=== PATIENT | male | born 1970 | race Caucasian/White ===

== ENCOUNTER 2017-12-27 13:32 | Inpatient (IN) | payer OTHER ==
[2017-12-27 14:50] VITALS: BMI 43.0
[2017-12-27] MEDS ORDERED: MAGNESIUM CITRATE 300 ML BOTTLE PO PRN (15:23)
[2017-12-27] MEDS ORDERED: P-EPHED 60MG/TRIPROLIDI 2.5MG TABLET PO PRN (15:23)
[2017-12-27] MEDS ORDERED: MENTHOL/PHENOL 1 EACH UD MM PRN (15:23)
[2017-12-27] MEDS ORDERED: chlordiazePOXIDE HCL 25 MG CAPSULE PO PRN (15:23)
[2017-12-27] MEDS ORDERED: guaiFENesin/D-METHORPHAN HB 10 ML UNIT-DOSE CUPS PO PRN (15:23)
[2017-12-27] MEDS ORDERED: MAGNESIUM HYDROX 2400MG/30ML ORAL SUSPENSION 30 ML CUP PO PRN (15:23)
[2017-12-27] MEDS ORDERED: NICOTINE POLACRILEX 2 MG GUM BC PRN (15:23)
[2017-12-27] MEDS ORDERED: ACETAMINOPHEN 325 MG TABLET (FP) PO PRN (15:23)
[2017-12-27] MEDS ORDERED: MAG HYDROX/AL HYDROX/SIMETH 30 ML UNIT-DOSE CUP PO PRN (15:23)
[2017-12-27] MEDS ORDERED: LOPERAMIDE HCL 2 MG CAPSULE PO PRN (15:23)
[2017-12-27] MEDS ORDERED: hydrOXYzine PAMOATE 50 MG CAPSULE (FP) PO PRN (15:23)
[2017-12-27] MEDS ORDERED: IBUPROFEN 400 MG TABLET (FP) PO PRN (15:23)
[2017-12-27] MEDS ORDERED: ONDANSETRON *ODT* 4 MG TABLET SL PRN (15:32)
--- NOTE | 2017-12-27 15:46 | HP ---
CIWA Score - CIWA Score Nausea/Vomitin-Int. Nausea w/Dry Heave Muscle Tremors: 4-Moderate,w/Arms Extend Anxiety: 4-Mod. Anxious/Guarded Agitation: 2 Paroxysmal Sweats: 2 Orientation: 0-Oriented Tacttile Disturbances: 1-Very Mild Itch/Numbness Auditory Disturbances: 0-None Visual Disturbances: 0-None Headache: 0-None Present CIWA-Ar Total Score: 17 Admission ROS S - HPI Chief Complaint: "I fell off the tracks, the past three weeks Radha been drinking excessively Allergies/Adverse Reactions: Allergies Allergy/AdvReac Type Severity Reaction Status Date / Time No Known Allergies Allergy Verified 12/27/17 15:16 History of Present Illness: 47 yo male with hx of nicotine and alcohol dependence is here seeking detox. Last detox at [facility] three years ago. No legal troubles at this time. Longest period of sobriety 90 days. PMHX: HTN, obesity, chronic right shoulder pain, depression, anxiety. Denies suicidal / homicidal ideation. Reports hx of seizure 5 years d/t alcohol withdrawal one year ago. Exam Limitations: No Limitations - Ebola screening Have you traveled outside of the country in the last 21 days: No Have you had contact with anyone from an Ebola affected area: No Have you been sick,other than usual withdrawal symptoms: No Do you have a fever: No - Review of Systems Constitutional: Diaphoresis, Loss of Appetite, Changes in sleep, Other (weight gain, anxious) EENT: reports: No Symptoms Reported Respiratory: reports: No Symptoms reported Cardiac: reports: No Symptoms Reported GI: reports: Poor Appetite, Poor Fluid Intake : reports: Other (nocturia) Musculoskeletal: reports: Other (chronic right shoulder pain from shoulder injury) Integumentary: reports: No Symptoms Reported Neuro: reports: Tremors Endocrine: reports: Increased Thirst Hematology: reports: No Symptoms Reported Psychiatric: reports: Orientated x3, Anxious, Depressed Other Systems: Reviewed and Negative Patient History - Patient Medical History Hx Anemia: No Hx Asthma: No Hx Chronic Obstructive Pulmonary Disease (COPD): No Hx Cancer: No Hx Cardiac Disorders: No Hx Hypertension: Yes Hx Hypercholesterolemia: No Hx Pacemaker: No HX Cerebrovascular Accident: No Hx Seizures: Yes (alcohol related once in 2012) Hx Dementia: No Hx Diabetes: No Hx Gastrointestinal Disorders: No Hx Genitourinary Disorders: No Hx Sexually Transmitted Disorders: No Hx Renal Disease (ESRD): No Hx Thyroid Disease: No Hx Human Immunodeficiency Virus (HIV): No Hx Hepatitis C: No Hx Depression: Yes Hx Suicide Attempt: No Hx Bipolar Disorder: No Hx Schizophrenia: No - Patient Surgical History Past Surgical History: Yes Hx Neurologic Surgery: No Hx Cataract Extraction: No Hx Cardiac Surgery: No Hx Lung Surgery: No Hx Breast Surgery: No Hx Breast Biopsy: No Hx Abdominal Surgery: No Hx Appendectomy: No Hx Cholecystectomy: No Hx Genitourinary Surgery: No Hx Section: No Hx Orthopedic Surgery: Yes (right shoulder dislocation in 2005) Anesthesia Reaction: No - PPD History Previous Implant?: Yes Documented Results: Negative w/o proof Implanted On Prior R Admission?: No PPD to be Administered?: Yes - Smoking Cessation Smoking history: Current every day smoker Have you smoked in the past 12 months: Yes Aproximately how many cigarettes per day: 2 Hx Chewing Tobacco Use: No Initiated information on smoking cessation: Yes 'Breaking Loose' booklet given: 01/17/18 - Substance & Tx. History Hx Alcohol Use: Yes Hx Substance Use: Yes Substance Use Type: Alcohol Hx Substance Use Treatment: Yes ([facility] ago) - Substances Abused Alcohol-beer Route: Oral Frequency: Daily Amount used: 3 (40 oz.) Age of first use: 22 Date of Last Use: 12/27/17 Family Disease History - Family Disease History Family History: Denies Admission Physical Exam BHS - Vital Signs Vital Signs: Vital Signs - 24 hr 12/27/17 14:48 Temperature 97.5 F L Pulse Rate 81 Respiratory 20 Rate Blood Pressure 161/95 - Physical General Appearance: Yes: Disheveled, Moderate Distress, Obese, Tremorous, Sweating, Anxious HEENTM: Yes: EOMI, Hearing grossly Normal, Normal ENT Inspection, Normocephalic , Normal Voice, ROSA, Pharynx Normal, Tm's normal Respiratory: Yes: Chest Non-Tender, Lungs Clear, Normal Breath Sounds, No Respiratory Distress, No Accessory Muscle Use Neck: Yes: Within Normal Limits Breast: Yes: Breast Exam Deferred Cardiology: Yes: Regular Rhythm, Regular Rate, Murmur Abdominal: Yes: Normal Bowel Sounds, Non Tender, Soft, Protuberent Genitourinary: Yes: Within Normal Limits Back: Yes: Normal Inspection Musculoskeletal: Yes: full range of Motion, Gait Steady, Pelvis Stable Extremities: Yes: Normal Capillary Refill, Normal Inspection, Normal Range of Motion, Tremors Neurological: Yes: 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 NML intact, Fully Oriented, Alert, Motor Strength 5/5, Depressed Affect Integumentary: Yes: Normal Color, Warm, Diaphoresis Lymphatic: Yes: Within Normal Limits - Diagnostic (1) Alcohol dependence with withdrawal Current Visit: Yes Status: Acute Qualifiers: Complication of substance-induced condition: uncomplicated Qualified Code(s ): F10.230 - Alcohol dependence with withdrawal, uncomplicated (2) Nicotine dependence Current Visit: Yes Status: Acute Qualifiers: Nicotine product type: cigarettes (3) Obese Current Visit: Yes Status: Chronic Qualifiers: Obesity classification: adult class 3 (BMI >= 40) Serious obesity comorbidity presence: unspecified whether serious comorbidity present Body mass index: BMI 40.0-44.9 (4) Chronic right shoulder pain Current Visit: Yes Status: Chronic (5) Hypertension Current Visit: Yes Status: Chronic Qualifiers: Hypertension type: essential hypertension Qualified Code(s): I10 - Essential (primary) hypertension Cleared for Admission [facility] - Detox or Rehab [facility] Level of Care: Medically Managed Detox Regimen/Protocol: Librium [facility] Breath Alcohol Content Breath Alcohol Content: 0.296 Urine Drug Screen - Results Drug Screen Negative: Yes
[2017-12-27] MEDS ORDERED: cloNIDine HCL 0.1 MG TABLET PO ONE (17:00)
[2017-12-27] MEDS ORDERED: chlordiazePOXIDE HCL 25 MG CAPSULE PO ONE (17:00)
[2017-12-27] MEDS: LIDOCAINE 5% TOPICAL PATCH TP SCH (17:07)
[2017-12-27] MEDS: CYCLOBENZAPRINE HCL 5 MG TABLET PO SCH (22:21)
[2017-12-27] MEDS: chlordiazePOXIDE HCL 25 MG CAPSULE PO SCH (22:21)
[2017-12-27] MEDS: THIAMINE HCL 100 MG TABLET (FP) PO SCH (22:21)
[2017-12-27] MEDS: MELATONIN 5 MG TABLETS PO PRN (22:22)
[2017-12-27] MEDS: LIDOCAINE PATCH REMOVAL MC SCH (22:31)
[2017-12-28] MEDS: chlordiazePOXIDE HCL 25 MG CAPSULE PO SCH ×4 (05:19→22:25)
[2017-12-28] MEDS: CYCLOBENZAPRINE HCL 5 MG TABLET PO SCH ×3 (05:19→22:25)
[2017-12-28] MEDS ORDERED: PATIENT'S OWN MEDICATION (NON-FORMULARY) (Amlodipine Besylate/Benazepril [Lotrel 5-10 Mg C PO SCH (10:00)
[2017-12-28] MEDS: LISINOPRIL 10 MG TABLET (FP) PO SCH (10:06)
[2017-12-28] MEDS: PRENATAL VITAMINS W/ FOLIC ACID TABLET (FP) PO SCH (10:06)
[2017-12-28] MEDS: LIDOCAINE 5% TOPICAL PATCH TP SCH (10:06)
[2017-12-28] MEDS: amLODIPine BESYLATE 5 MG TABLET (FP) PO SCH (10:06)
[2017-12-28] MEDS: NICOTINE 14 MG/24 HOURS TOPICAL PATCH TD SCH (10:08)
[2017-12-28 10:54] LABS: HEMATOCRIT 44.1 % (35.4-49); HEMOGLOBIN 14.5 GM/dL (11.7-16.9); MEAN CELL VOLUME 90.8 fl (80-96); PLATELET COUNT 142 K/MM3 (134-434); RBC 4.85 M/mm3 (4.00-5.60); RDW 15.7 % (11.9-15.9); WHITE BLOOD COUNT 7.8 K/mm3 (4.0-10.0)
[2017-12-28 11:40] LABS: ALBUMIN 3.7 g/dl (3.4-5.0); ALK PHOS 99 U/L (45-117); ANION GAP 15 MMOL/L (8-16); BILIRUBIN,TOTAL 0.4 mg/dL (0.2-1); BLOOD UREA NITROGEN 12 mg/dL (7-18); CALCIUM 9.6 mg/dL (8.5-10.1); CHLORIDE 102 mmol/L (98-107); CO2 25 mmol/L (21-32); CREATININE 1.1 mg/dL (0.55-1.3); GLUCOSE,RANDOM 142 mg/dL (74-106); POTASSIUM 3.6 mmol/L (3.5-5.1); SGOT/AST 62 U/L (15-37); SGPT/ALT 49 U/L (13-61); SODIUM 142 mmol/L (136-145)
--- NOTE | 2017-12-28 11:52 | PN ---
[facility] CIWA - CIWA Score Nausea/Vomitin-Mild Nausea/No Vomiting Muscle Tremors: 4-Moderate,w/Arms Extend Anxiety: 4-Mod. Anxious/Guarded Agitation: 4-Moderately Restless Paroxysmal Sweats: 3 Orientation: 0-Oriented Tacttile Disturbances: 0-None Auditory Disturbances: 0-None Visual Disturbances: 0-None Headache: 1-Very Mild CIWA-Ar Total Score: 17 BHS Progress Note (SOAP) Subjective: Tremor, sweating, interrupted sleep Objective: 12/28/17 11:50 Last Vital Signs Temp Pulse Resp BP Pulse Ox 97.4 F L 94 H 18 151/98 12/28/17 09:55 12/28/17 10:30 12/28/17 10:30 12/28/17 09:55 b/p noted: h/o htn (on med) Laboratory Tests 12/28/17 12/28/17 06:00 06:00 WBC 7.8 RBC 4.85 Hgb 14.5 Hct 44.1 MCV 90.8 MCH 30.0 MCHC 33.0 RDW 15.7 Plt Count 142 MPV 11.0 Sodium 142 Potassium 3.6 Chloride 102 Carbon Dioxide 25 Anion Gap 15 BUN 12 Creatinine 1.1 Creat Clearance w eGFR > 60 Random Glucose 142 H Calcium 9.6 Total Bilirubin 0.4 AST 62 H ALT 49 Alkaline Phosphatase 99 Total Protein 8.0 Albumin 3.7 Labs reviewed Assessment: 12/28/17 11:51 Withdrawal sxs Plan: Continue detox HTN: continue regimen and adjust if warranted
--- NOTE | 2017-12-28 17:20 | PN ---
S Progress Note Note: Patient with elevated blood pressures despite daily Norvasc and Lisinopril. Denies H/A, numbness, CP. Ambulating w/ steady gait. Vital Signs 12/28/17 12/28/17 12/28/17 09:30 09:55 10:00 Temperature 97.4 F L Pulse Rate 92 H 92 H 94 H Respiratory 18 18 18 Rate Blood Pressure 151/98 12/28/17 12/28/17 12/28/17 12:00 12:30 13:21 Temperature 96.8 F L Pulse Rate 80 78 84 Respiratory 18 18 18 Rate Blood Pressure 154/88 Current B/P: 170/102 (L) 172/97 (R). Administer CloNidine 0.2 mg Once. Continue to monitor.
[2017-12-28] MEDS ORDERED: cloNIDine HCL 0.1 MG TABLET PO ONE (17:30)
[2017-12-28 17:37] LABS: URINE APPEARANCE SLCLOUDY; URINE BILIRUBIN NEGATIVE (<2.0 mg/dL); URINE COLOR YELLOW; URINE GLUCOSE (UA) NEGATIVE (NEGATIVE); URINE KETONE NEGATIVE (NEGATIVE); URINE LEUK ESTERASE NEGATIVE (NEGATIVE); URINE NITRITE NEGATIVE (NEGATIVE); URINE PROTEIN 1+ (NEGATIVE); URINE UROBILINOGEN NEGATIVE mg/dL (0.2-1.0)
--- NOTE | 2017-12-28 17:58 | CONSULT ---
[facility] Psychiatric Consult - Data Date of interview: 12/28/17 Admission source: [facility] Identifying data: First admission to [facility] for this 47 y/o male seeking detoxification treatment on for alcohol dependence.Patient is single without dependents,domiciled and currently employed. Substance Abuse History: Confirmed by the patient in this interview.Details in current [facility] report : Smoking history: Current every day smoker. Have you smoked in the past 12 months: Yes. Aproximately how many cigarettes per day: 2. Hx Chewing Tobacco Use: No. Initiated information on smoking cessation: Yes. 'Breaking Loose' booklet given: 01/17/18. - Substance & Tx. History. Hx Alcohol Use: Yes. Hx Substance Use: Yes. Substance Use Type: Alcohol. Hx Substance Use Treatment: Yes ([facility] detox three years ago). - Substances Abused. Alcohol-beer. Route: Oral. Frequency: Daily. Amount used: 3 (40 oz.). Age of first use: 22. Date of Last Use: 12/27/17 Medical History: Obesity,hypertension,antecedent of withdrawal-related seizures and a history of dislocation of right shoulder. Psychiatric History: Patient denies. Physical/Sexual Abuse/Trauma History: Patient denies. Additional Comment: Drug Screen is negative. Mental Status Exam - Mental Status Exam Alert and Oriented to: Time, Place, Person Cognitive Function: Good Patient Appearance: Well Groomed (obese) Mood: Hopeful, Euthymic Affect: Appropriate, Normal Range Patient Behavior: Fatigued, Cooperative Speech Pattern: Clear, Appropriate Voice Loudness: Normal Thought Process: Intact, Goal Oriented Thought Disorder: Not Present Hallucinations: Denies Suicidal Ideation: Denies Homicidal Ideation: Denies Insight/Judgement: Fair Sleep: Poorly, Difficulty falling asleep Appetite: Good Muscle strength/Tone: Normal Gait/Station: Normal Psychiatric Findings - Problem List ([place] 1, 2,3) (1) Alcohol dependence with withdrawal Current Visit: Yes Status: Acute Qualifiers: Complication of substance-induced condition: uncomplicated Qualified Code(s ): F10.230 - Alcohol dependence with withdrawal, uncomplicated (2) Nicotine dependence Current Visit: Yes Status: Chronic Qualifiers: Nicotine product type: cigarettes (3) Insomnia Current Visit: Yes Status: Acute - Initial Treatment Plan Initial Treatment Plan: Psychoeducation.Sleep hygiene.Detoxification.Insomnia is addressed with melatonin at bedtime.Patient agrees to this careplan.Observation.
[2017-12-28 18:01] LABS: EPI CELLS RARE /HPF (FEW); URINE HYALINE CAST 68 /lpf; URINE MUCUS RARE
[2017-12-28 18:05] LABS: CALCIUM OXALATE CRYSTALS 1+ /hpf (NONE SEEN); URIC ACID CRYSTALS 1+ /hpf (NONE SEEN)
[2017-12-28] MEDS: THIAMINE HCL 100 MG TABLET (FP) PO SCH (22:26)
[2017-12-28] MEDS: LIDOCAINE PATCH REMOVAL MC SCH (22:26)
[2017-12-28] MEDS: MELATONIN 5 MG TABLETS PO PRN (22:27)
[2017-12-29] MEDS: chlordiazePOXIDE HCL 25 MG CAPSULE PO SCH ×3 (06:08→18:00)
[2017-12-29] MEDS: CYCLOBENZAPRINE HCL 5 MG TABLET PO SCH ×3 (06:09→22:11)
[2017-12-29] MEDS: LISINOPRIL 10 MG TABLET (FP) PO SCH (10:01)
[2017-12-29] MEDS: amLODIPine BESYLATE 5 MG TABLET (FP) PO SCH (10:01)
[2017-12-29] MEDS: PRENATAL VITAMINS W/ FOLIC ACID TABLET (FP) PO SCH (10:01)
[2017-12-29] MEDS: LIDOCAINE 5% TOPICAL PATCH TP SCH (10:02)
[2017-12-29] MEDS: NICOTINE 14 MG/24 HOURS TOPICAL PATCH TD SCH (10:02)
[2017-12-29] MEDS: DOCUSATE SODIUM 100 MG CAPSULE (FP) PO SCH ×2 (13:58→22:11)
--- NOTE | 2017-12-29 15:02 | PN ---
S CIWA - CIWA Score Nausea/Vomitin Muscle Tremors: 2 Anxiety: 3 Agitation: 3 Paroxysmal Sweats: 2 Orientation: 0-Oriented Tacttile Disturbances: 0-None Auditory Disturbances: 0-None Visual Disturbances: 0-None Headache: 0-None Present CIWA-Ar Total Score: 12 BHS Progress Note (SOAP) Subjective: c/o constipation, last BM three days ago, interrupted sleep, anxious Objective: 12/29/17 15:00 Vital Signs Temperature 98.8 F 12/29/17 13:36 Pulse Rate 57 L 12/29/17 13:36 Respiratory Rate 18 12/29/17 13:36 Blood Pressure 112/68 12/29/17 13:36 O2 Sat by Pulse Oximetry (%) Laboratory Last Values WBC 7.8 K/mm3 (4.0-10.0) 12/28/17 06:00 RBC 4.85 M/mm3 (4.00-5.60) 12/28/17 06:00 Hgb 14.5 GM/dL (11.7-16.9) 12/28/17 06:00 Hct 44.1 % (35.4-49) 12/28/17 06:00 MCV 90.8 fl (80-96) 12/28/17 06:00 MCH 30.0 pg (25.7-33.7) 12/28/17 06:00 MCHC 33.0 g/dl (32.0-35.9) 12/28/17 06:00 RDW 15.7 % (11.9-15.9) 12/28/17 06:00 Plt Count 142 K/MM3 (134-434) 12/28/17 06:00 MPV 11.0 fl (7.5-11.1) 12/28/17 06:00 Sodium 142 mmol/L (136-145) 12/28/17 06:00 Potassium 3.6 mmol/L (3.5-5.1) 12/28/17 06:00 Chloride 102 mmol/L (98-107) 12/28/17 06:00 Carbon Dioxide 25 mmol/L (21-32) 12/28/17 06:00 Anion Gap 15 MMOL/L (8-16) 12/28/17 06:00 BUN 12 mg/dL (7-18) 12/28/17 06:00 Creatinine 1.1 mg/dL (0.55-1.3) 12/28/17 06:00 Creat Clearance w eGFR > 60 (>60) 12/28/17 06:00 Random Glucose 142 mg/dL (74-106) H 12/28/17 06:00 Calcium 9.6 mg/dL (8.5-10.1) 12/28/17 06:00 Total Bilirubin 0.4 mg/dL (0.2-1) 12/28/17 06:00 AST 62 U/L (15-37) H 12/28/17 06:00 ALT 49 U/L (13-61) 12/28/17 06:00 Alkaline Phosphatase 99 U/L (45-117) 12/28/17 06:00 Total Protein 8.0 g/dl (6.4-8.2) 12/28/17 06:00 Albumin 3.7 g/dl (3.4-5.0) 12/28/17 06:00 Urine Color Yellow 12/28/17 16:30 Urine Appearance Slcloudy 12/28/17 16:30 Urine pH 5.0 (5.0-8.0) 12/28/17 16:30 Ur Specific [place] 1.019 (1.010-1.035) 12/28/17 16:30 Urine Protein 1+ (NEGATIVE) H 12/28/17 16:30 Urine Glucose (UA) Negative (NEGATIVE) 12/28/17 16:30 Urine Ketones Negative (NEGATIVE) 12/28/17 16:30 Urine Blood Negative (NEGATIVE) 12/28/17 16:30 Urine Nitrite Negative (NEGATIVE) 12/28/17 16:30 Urine Bilirubin Negative (<2.0 mg/dL) 12/28/17 16:30 Urine Urobilinogen Negative mg/dL (0.2-1.0) 12/28/17 16:30 Ur Leukocyte Esterase Negative (NEGATIVE) 12/28/17 16:30 Urine WBC (Auto) <1 /hpf (3-5) 12/28/17 16:30 Urine RBC (Auto) <1 /hpf (0-3) 12/28/17 16:30 Ur Epithelial Cells Rare /HPF (FEW) 12/28/17 16:30 Calcium Oxalate Crystal 1+ /hpf (NONE SEEN) 12/28/17 16:30 Uric Acid Crystals 1+ /hpf (NONE SEEN) 12/28/17 16:30 Hyaline Casts 68 /lpf 12/28/17 16:30 Urine Mucus Rare 12/28/17 16:30 RPR Titer Nonreactive (NONREACTIVE) 12/28/17 06:00 HIV 1&2 Antibody Screen Negative 12/28/17 06:00 HIV P24 Antigen Negative 12/28/17 06:00 AOx3 no distress no adventitious breath sounds full ROM ambulating in the unit Assessment: 12/29/17 15:01 withdrawal symptoms constipation Plan: lactulose PRN for constipation increase fluids continue detox continue to monitor
--- NOTE | 2017-12-29 17:33 | EKG ---
Test Reason : Blood Pressure : / mmHG Vent. Rate : 086 BPM Atrial Rate : 086 BPM P-R Int : 152 ms QRS Dur : 124 ms QT Int : 386 ms P-R-T Axes : 071 121 058 degrees QTc Int : 461 ms NORMAL SINUS RHYTHM RIGHT AXIS DEVIATION RSR' OR QR PATTERN IN V1 SUGGESTS RIGHT VENTRICULAR CONDUCTION DELAY ABNORMAL ECG NO PREVIOUS ECGS AVAILABLE CLINICAL CORRELATION IS RECOMMENDED Confirmed by LEILA RAMIREZ, ABRIL ([id number]) on 12/29/2017 5:32:40 PM Referred By: Confirmed By:ABRIL DEE MD
[2017-12-29] MEDS: THIAMINE HCL 100 MG TABLET (FP) PO SCH (22:11)
[2017-12-29] MEDS: chlordiazePOXIDE 5 MG CAPSULE PO SCH (22:11)
[2017-12-29] MEDS: MELATONIN 5 MG TABLETS PO PRN (22:12)
[2017-12-30] MEDS: LIDOCAINE PATCH REMOVAL MC SCH ×2 (00:10→22:20)
[2017-12-30] MEDS: DOCUSATE SODIUM 100 MG CAPSULE (FP) PO SCH ×3 (05:09→22:24)
[2017-12-30] MEDS: CYCLOBENZAPRINE HCL 5 MG TABLET PO SCH ×3 (05:09→22:24)
[2017-12-30] MEDS: chlordiazePOXIDE 5 MG CAPSULE PO SCH ×3 (05:09→17:38)
[2017-12-30] MEDS: PRENATAL VITAMINS W/ FOLIC ACID TABLET (FP) PO SCH (10:07)
[2017-12-30] MEDS: LISINOPRIL 10 MG TABLET (FP) PO SCH (10:07)
[2017-12-30] MEDS: amLODIPine BESYLATE 5 MG TABLET (FP) PO SCH (10:07)
[2017-12-30] MEDS: LIDOCAINE 5% TOPICAL PATCH TP SCH (10:08)
[2017-12-30] MEDS: NICOTINE 14 MG/24 HOURS TOPICAL PATCH TD SCH (10:08)
--- NOTE | 2017-12-30 12:21 | PN ---
BHS Progress Note (SOAP) Subjective: Interrupted sleep, muscle aches Objective: 12/30/17 12:21 Vital Signs - 8 hr 12/30/17 12/30/17 06:39 09:25 Temperature 97.1 F L 97.0 F L Pulse Rate 78 82 Respiratory 20 18 Rate Blood Pressure 138/91 134/89 Laboratory Last Values WBC 7.8 K/mm3 (4.0-10.0) 12/28/17 06:00 RBC 4.85 M/mm3 (4.00-5.60) 12/28/17 06:00 Hgb 14.5 GM/dL (11.7-16.9) 12/28/17 06:00 Hct 44.1 % (35.4-49) 12/28/17 06:00 MCV 90.8 fl (80-96) 12/28/17 06:00 MCH 30.0 pg (25.7-33.7) 12/28/17 06:00 MCHC 33.0 g/dl (32.0-35.9) 12/28/17 06:00 RDW 15.7 % (11.9-15.9) 12/28/17 06:00 Plt Count 142 K/MM3 (134-434) 12/28/17 06:00 MPV 11.0 fl (7.5-11.1) 12/28/17 06:00 Sodium 142 mmol/L (136-145) 12/28/17 06:00 Potassium 3.6 mmol/L (3.5-5.1) 12/28/17 06:00 Chloride 102 mmol/L (98-107) 12/28/17 06:00 Carbon Dioxide 25 mmol/L (21-32) 12/28/17 06:00 Anion Gap 15 MMOL/L (8-16) 12/28/17 06:00 BUN 12 mg/dL (7-18) 12/28/17 06:00 Creatinine 1.1 mg/dL (0.55-1.3) 12/28/17 06:00 Creat Clearance w eGFR > 60 (>60) 12/28/17 06:00 Random Glucose 142 mg/dL (74-106) H 12/28/17 06:00 Calcium 9.6 mg/dL (8.5-10.1) 12/28/17 06:00 Total Bilirubin 0.4 mg/dL (0.2-1) 12/28/17 06:00 AST 62 U/L (15-37) H 12/28/17 06:00 ALT 49 U/L (13-61) 12/28/17 06:00 Alkaline Phosphatase 99 U/L (45-117) 12/28/17 06:00 Total Protein 8.0 g/dl (6.4-8.2) 12/28/17 06:00 Albumin 3.7 g/dl (3.4-5.0) 12/28/17 06:00 Urine Color Yellow 12/28/17 16:30 Urine Appearance Slcloudy 12/28/17 16:30 Urine pH 5.0 (5.0-8.0) 12/28/17 16:30 Ur Specific [place] 1.019 (1.010-1.035) 12/28/17 16:30 Urine Protein 1+ (NEGATIVE) H 12/28/17 16:30 Urine Glucose (UA) Negative (NEGATIVE) 12/28/17 16:30 Urine Ketones Negative (NEGATIVE) 12/28/17 16:30 Urine Blood Negative (NEGATIVE) 12/28/17 16:30 Urine Nitrite Negative (NEGATIVE) 12/28/17 16:30 Urine Bilirubin Negative (<2.0 mg/dL) 12/28/17 16:30 Urine Urobilinogen Negative mg/dL (0.2-1.0) 12/28/17 16:30 Ur Leukocyte Esterase Negative (NEGATIVE) 12/28/17 16:30 Urine WBC (Auto) <1 /hpf (3-5) 12/28/17 16:30 Urine RBC (Auto) <1 /hpf (0-3) 12/28/17 16:30 Ur Epithelial Cells Rare /HPF (FEW) 12/28/17 16:30 Calcium Oxalate Crystal 1+ /hpf (NONE SEEN) 12/28/17 16:30 Uric Acid Crystals 1+ /hpf (NONE SEEN) 12/28/17 16:30 Hyaline Casts 68 /lpf 12/28/17 16:30 Urine Mucus Rare 12/28/17 16:30 RPR Titer Nonreactive (NONREACTIVE) 12/28/17 06:00 HIV 1&2 Antibody Screen Negative 12/28/17 06:00 HIV P24 Antigen Negative 12/28/17 06:00 Labs noted Assessment: 12/30/17 12:21 Withdrawal sx Plan: Continue detox Continue pain management as ordered
[2017-12-30] MEDS: chlordiazePOXIDE HCL 10 MG CAPSULE PO SCH (22:24)
[2017-12-30] MEDS: THIAMINE HCL 100 MG TABLET (FP) PO SCH (22:24)
[2017-12-30] MEDS: MELATONIN 5 MG TABLETS PO PRN (22:24)
[2017-12-31] MEDS: CYCLOBENZAPRINE HCL 5 MG TABLET PO SCH (05:30)
[2017-12-31] MEDS: DOCUSATE SODIUM 100 MG CAPSULE (FP) PO SCH (05:31)
[2017-12-31] MEDS: chlordiazePOXIDE HCL 10 MG CAPSULE PO SCH ×2 (05:31→10:05)
[2017-12-31 09:09] VITALS: BP 143/95; PULSE 86; TEMP 97
[2017-12-31] MEDS: LIDOCAINE 5% TOPICAL PATCH TP SCH (10:05)
[2017-12-31] MEDS: NICOTINE 14 MG/24 HOURS TOPICAL PATCH TD SCH (10:05)
[2017-12-31] MEDS: amLODIPine BESYLATE 5 MG TABLET (FP) PO SCH (10:05)
[2017-12-31] MEDS: LISINOPRIL 10 MG TABLET (FP) PO SCH (10:05)
[2017-12-31] MEDS: PRENATAL VITAMINS W/ FOLIC ACID TABLET (FP) PO SCH (10:05)
--- NOTE | 2017-12-31 10:45 | PN ---
S Progress Note (SOAP) Subjective: No complaints offered Objective: 12/31/17 10:42 A & O x 3 No distress noted Vital Signs Temperature 97.0 F L 12/31/17 09:08 Pulse Rate 86 12/31/17 09:08 Respiratory Rate 20 12/31/17 09:08 Blood Pressure 143/95 12/31/17 09:08 O2 Sat by Pulse Oximetry (%) Laboratory Last Values WBC 7.8 K/mm3 (4.0-10.0) 12/28/17 06:00 RBC 4.85 M/mm3 (4.00-5.60) 12/28/17 06:00 Hgb 14.5 GM/dL (11.7-16.9) 12/28/17 06:00 Hct 44.1 % (35.4-49) 12/28/17 06:00 MCV 90.8 fl (80-96) 12/28/17 06:00 MCH 30.0 pg (25.7-33.7) 12/28/17 06:00 MCHC 33.0 g/dl (32.0-35.9) 12/28/17 06:00 RDW 15.7 % (11.9-15.9) 12/28/17 06:00 Plt Count 142 K/MM3 (134-434) 12/28/17 06:00 MPV 11.0 fl (7.5-11.1) 12/28/17 06:00 Sodium 142 mmol/L (136-145) 12/28/17 06:00 Potassium 3.6 mmol/L (3.5-5.1) 12/28/17 06:00 Chloride 102 mmol/L (98-107) 12/28/17 06:00 Carbon Dioxide 25 mmol/L (21-32) 12/28/17 06:00 Anion Gap 15 MMOL/L (8-16) 12/28/17 06:00 BUN 12 mg/dL (7-18) 12/28/17 06:00 Creatinine 1.1 mg/dL (0.55-1.3) 12/28/17 06:00 Creat Clearance w eGFR > 60 (>60) 12/28/17 06:00 Random Glucose 142 mg/dL (74-106) H 12/28/17 06:00 Calcium 9.6 mg/dL (8.5-10.1) 12/28/17 06:00 Total Bilirubin 0.4 mg/dL (0.2-1) 12/28/17 06:00 AST 62 U/L (15-37) H 12/28/17 06:00 ALT 49 U/L (13-61) 12/28/17 06:00 Alkaline Phosphatase 99 U/L (45-117) 12/28/17 06:00 Total Protein 8.0 g/dl (6.4-8.2) 12/28/17 06:00 Albumin 3.7 g/dl (3.4-5.0) 12/28/17 06:00 Urine Color Yellow 12/28/17 16:30 Urine Appearance Slcloudy 12/28/17 16:30 Urine pH 5.0 (5.0-8.0) 12/28/17 16:30 Ur Specific [place] 1.019 (1.010-1.035) 12/28/17 16:30 Urine Protein 1+ (NEGATIVE) H 12/28/17 16:30 Urine Glucose (UA) Negative (NEGATIVE) 12/28/17 16:30 Urine Ketones Negative (NEGATIVE) 12/28/17 16:30 Urine Blood Negative (NEGATIVE) 12/28/17 16:30 Urine Nitrite Negative (NEGATIVE) 12/28/17 16:30 Urine Bilirubin Negative (<2.0 mg/dL) 12/28/17 16:30 Urine Urobilinogen Negative mg/dL (0.2-1.0) 12/28/17 16:30 Ur Leukocyte Esterase Negative (NEGATIVE) 12/28/17 16:30 Urine WBC (Auto) <1 /hpf (3-5) 12/28/17 16:30 Urine RBC (Auto) <1 /hpf (0-3) 12/28/17 16:30 Ur Epithelial Cells Rare /HPF (FEW) 12/28/17 16:30 Calcium Oxalate Crystal 1+ /hpf (NONE SEEN) 12/28/17 16:30 Uric Acid Crystals 1+ /hpf (NONE SEEN) 12/28/17 16:30 Hyaline Casts 68 /lpf 12/28/17 16:30 Urine Mucus Rare 12/28/17 16:30 RPR Titer Nonreactive (NONREACTIVE) 12/28/17 06:00 HIV 1&2 Antibody Screen Negative 12/28/17 06:00 HIV P24 Antigen Negative 12/28/17 06:00 Assessment: 12/31/17 10:44 Detox completed Plan: For discharge
--- NOTE | 2017-12-31 10:51 | DS ---
[facility] Detox Discharge Summary Admission Date: 12/27/17 Discharge Date: 12/31/17 - History Additional Comments: Pt being discharged home To do outpatient at [place] [facility] or [facility] Will follow up with his PMD Dr Sekou Hahn of [facility] [place] Has an appt in January but does not remember date. Pt declines med refill (amlodipine), states "I still got some and will see my doctor or call him if I need some before I see him" Pertinent Past History: HTN - Physical Exam Results Vital Signs: Vital Signs Temperature 97.0 F L 12/31/17 09:08 Pulse Rate 86 12/31/17 09:08 Respiratory Rate 20 12/31/17 09:08 Blood Pressure 143/95 12/31/17 09:08 O2 Sat by Pulse Oximetry (%) Pertinent Admission Physical Exam Findings: withdrawal sx - Treatment Hospital Course: Detox Protocol Followed, Detoxed Safely, Responded well, Discharged Condition Good Patient has Accepted a Rehab Referral to: Out patient at [place] [facility] - Medication Discharge Medications: Ambulatory Orders Amlodipine Besylate/Benazepril [Lotrel 5-10 mg Capsule] 1 each PO DAILY - AMA Did Patient Leave Against Medical Advice: No
== END 2017-12-31 10:35 | disposition home or self-care (01) | DRG 775 ==
LOC: YASAS 13:32 → Y3N 16:14
PROC: HZ2ZZZZ Detoxification Services for Substance Abuse Treatment (ICD-10-PCS; principal; 2017-12-27)
DX: F10.230 Alcohol dependence with withdrawal, uncomplicated (principal); F17.210 Nicotine dependence, cigarettes, uncomplicated; F19.282 Other psychoactive substance dependence with psychoactive substance-induced sleep disorder; I10 Essential (primary) hypertension; K59.00 Constipation, unspecified; M25.511 Pain in right shoulder; G89.29 Other chronic pain; E66.9 Obesity, unspecified; Z68.41 Body mass index [BMI] 40.0-44.9, adult; Z86.69 Personal history of other diseases of the nervous system and sense organs
CPT/HCPCS: 36415; 80053; 81003; 81015; 85027; 86593; 87389; 93005; 93010; J0735; Q0162